=== PATIENT | female | born 1945 | race Caucasian/White ===

== ENCOUNTER → 2018-01-18 | Outpatient (CLI) | payer MEDICARE, BC | LOC: M WHC 10:24 | DX: Z12.31 Encounter for screening mammogram for malignant neoplasm of breast (principal); Z78.0 Asymptomatic menopausal state; Z92.23 Personal history of estrogen therapy | CPT/HCPCS: 77067 ==

== ENCOUNTER → 2019-04-04 | Outpatient (CLI) | payer MEDICARE, BC ==
--- NOTE | 2019-04-04 12:04 | REPMRS ---
Patient History The patient states she had a clinical breast exam in 03/2019. No known family history of cancer. Took estrogen for 23 years. Digital Woman Screen Mammo: April 04, 2019 - Exam #: [id number] Bilateral CC and MLO view(s) were taken. Technologist: Gissel Shirley, Technologist Prior study comparison: January 18, 2018, digital woman screen mammo performed at [facility]. September 02, 2016, digital woman screen mammo performed at [facility]. August 14, 2014, digital woman screen mammo performed at [facility]. FINDINGS: There are scattered fibroglandular densities. There is a needle biopsy marker clip again noted in the right breast. There is a stable nodular density centrally in the left breast unchanged from multiple prior studies. This measures 14 mm in greatest diameter and contains a few punctate calcifications. There is a moderate amount of residual fibroglandular tissue which is fairly symmetric. There is no interval development of dominant mass, architectural distortion, or clustered microcalcification typical of malignancy. There has been no change in the appearance of the mammogram from the prior studies. 3-D tomosynthesis shows no additional findings. Assessment: BI-RADS/ACR category 2 mammogram. Benign Findings. Recommendation Routine screening mammogram of both breasts in 1 year (for women over age 40). This patient's Lifetime Breast Cancer RIsk is estimated at 3.0 %. This mammogram was interpreted with the aid of an FDA-approved computer-aided dectection system. Electronically Signed By: Hiro Sainz MD 04/04/19 [id number]
--- NOTE | 2019-04-04 15:36 | DEXA ---
AP SPINE L1 - L4 0.960 -1.9 -0.2 LT FEMUR TOTAL 0.869 -1.1 0.5 LT NECK 0.770 -1.9 -0.1 RT FEMUR TOTAL 0.854 -1.2 0.4 RT NECK 0.755 -2.0 -0.2 TOTAL BODY TOTAL OTHER COMMENTS: There is low bone density of the spine and hips. The density of the spine has decreased 19.5% since the initial exam on 04/23/2000. The spine density has decreased 0.7% since the most recent exam on 09/02/2016. The density of the left hip has decreased 6.3% since the initial exam on 04/23/2000. The density of the left hip has decreased 3.6% since the most East exam on 09/02/2016. The density of the right hip has decreased 8.5% since the initial exam on 04/23/2000. The density of the right hip has decreased 1.3% since the most recent exam on 09/02/2016. FOLLOW-UP: Recommendation for the next bone density exam: 2 years. JOSH
== END ==
LOC: M WHC 10:01
PROVIDERS: ATTEND Nurse Practitioner Women's Health
DX: Z12.31 Encounter for screening mammogram for malignant neoplasm of breast (principal); N63.20 Unspecified lump in the left breast, unspecified quadrant; Z78.0 Asymptomatic menopausal state; M85.88 Other specified disorders of bone density and structure, other site; Z92.23 Personal history of estrogen therapy
CPT/HCPCS: 77063; 77067; 77080; G0463

== ENCOUNTER → 2020-04-09 | Outpatient (CLI) | payer MEDICARE, BC ==
--- NOTE | 2020-04-09 11:08 | REPMRS ---
Patient History The patient states she had a clinical breast exam in March 2020. No known family history of cancer. Took estrogen for 23 years. Digital Woman Screen Mammo: April 09, 2020 - Exam #: [id number] Bilateral CC and MLO view(s) were taken. Technologist: Tete Sinclair, Technologist Prior study comparison: April 04, 2019, bilateral digital woman screen mammo performed at [facility]. January 18, 2018, digital woman screen mammo performed at [facility]. September 02, 2016, digital woman screen mammo performed at [facility]. FINDINGS: There are scattered fibroglandular densities. The Volpara volumetric breast density category is:B. There is a stable nodular opacity in the superior medial quadrant of the left breast unchanged from multiple prior studies. There has been no change in the appearance of the mammogram from the prior studies. There is a mild amount of scattered fibroglandular density which is fairly symmetric. There is no interval development of dominant mass, architectural distortion, or grouped microcalcification suggestive of malignancy. 3-D tomosynthesis shows no additional findings. Assessment: BI-RADS/ACR category 2 mammogram. Benign Findings. Recommendation Routine screening mammogram of both breasts in 1 year (for women over age 40). This patient's Lifetime Breast Cancer Risk is estimated at 2.8 %. This mammogram was interpreted with the aid of an FDA-approved computer-aided dectection system. Electronically Signed By: Hiro Sainz MD 04/09/20 [id number]
== END ==
LOC: M WHC 09:33
PROVIDERS: ATTEND Nurse Practitioner Women's Health
DX: Z01.419 Encounter for gynecological examination (general) (routine) without abnormal findings (principal); Z12.31 Encounter for screening mammogram for malignant neoplasm of breast; Z92.23 Personal history of estrogen therapy
CPT/HCPCS: 77063; 77067; G0101

== ENCOUNTER → 2021-04-18 | Outpatient (CLI) | payer MEDICARE, BC ==
--- NOTE | 2021-04-18 11:40 | REPMRS ---
Patient History The patient states she had a clinical breast exam in March 2021. No known family history of cancer. Took estrogen for 23 years. No breast complaints today Patient signed the MRS sheet 1st covid vaccine 01/18/21-right arm-Moderna 2nd covid vaccine 02/15/21-left arm Patient states she has gained 15lbs since her last mammo [facility] on PACS Patient Identification Verified Digital Woman Screen Mammo: April 18, 2021 - Exam #: [id number] Bilateral CC and MLO view(s) were taken. Technologist: Tete Sinclair, Technologist Prior study comparison: April 09, 2020, bilateral digital woman screen mammo performed at [facility]. April 04, 2019, bilateral digital woman screen mammo performed at [facility]. January 18, 2018, digital woman screen mammo performed at [facility]. FINDINGS: There are scattered fibroglandular densities. The Volpara volumetric breast density category is: B. There is a stable nodular opacity containing coarse calcifications again noted in the left breast unchanged from multiple prior studies. There is a moderate amount of residual fibroglandular tissue which is fairly symmetric. There is no interval development of dominant mass, architectural distortion, or grouped microcalcification typical of malignancy. There has been no change in the appearance of the mammogram from the prior studies. 3-D tomosynthesis shows no additional findings. Assessment: BI-RADS/ACR category 2 mammogram. Benign Findings. Recommendation Routine screening mammogram of both breasts in 1 year (for women over age 40). This patient's [facility] Lifetime Breast Cancer RIsk is estimated at 2.6 %. This mammogram was interpreted with the aid of an FDA-approved computer-aided dectection system. Electronically Signed By: Hiro Sainz MD 04/18/21 [id number]
== END ==
LOC: M WHC 10:35
PROVIDERS: ATTEND Nurse Practitioner Women's Health
DX: Z01.419 Encounter for gynecological examination (general) (routine) without abnormal findings (principal); Z12.31 Encounter for screening mammogram for malignant neoplasm of breast; Z92.23 Personal history of estrogen therapy
CPT/HCPCS: 77063; 77067; G0101

== ENCOUNTER → 2021-08-19 | Outpatient (CLI) | payer MEDICARE, BC ==
[~2021-08-19] MED LIST: CICL8SOL3; FOSI10TA4 OR; HYDR-3490 OR; SERT50TA29 OR
== END ==
LOC: M LABSMTC 10:26
PROVIDERS: ATTEND Anesthesiology
DX: Z01.812 Encounter for preprocedural laboratory examination (principal); Z20.822 Contact with and (suspected) exposure to COVID-19

== ENCOUNTER 2021-08-23 08:59 | Day surgery (SDC) | payer MEDICARE, BC ==
[~2021-08-23] VITALS: Ht 162.6 cm; Wt 79.4 kg
[~2021-08-23 08:59] MED LIST changes: +LIDOCAINE 2% 100MG/5ML SDV (FOR ANES.) As Ordered ONE; +propofoL 200 MG/20 ML VIAL As Ordered ONE
[2021-08-23] MEDS ORDERED: NS 1,000 ML IV ONE (09:20)
--- NOTE | 2021-08-23 11:49 | ROOR ---
Patient Name: Susan Sheikh Procedure Date: 08/23/2021 11:20 AM Date of : 1945 Age: 76 Room: [facility] Gender: Female Note Status: Finalized Procedure: Colonoscopy Indications: Screening for colorectal malignant neoplasm Providers: Adan Forman MD Referring MD: Graciela Shin NP Requesting Provider: Medicines: Monitored Anesthesia Care Complications: No immediate complications. Procedure: Pre-Anesthesia Assessment: - The heart rate, respiratory rate, oxygen saturations, blood pressure, adequacy of pulmonary ventilation, and response to care were monitored throughout the procedure. The Colonoscope was introduced through the anus and advanced to the terminal ileum, with identification of the appendiceal orifice and IC valve. The colonoscopy was performed without difficulty. The patient tolerated the procedure well. The quality of the bowel preparation was good. Findings: The perianal and digital rectal examinations were normal. Multiple small and large-mouthed diverticula/moderate to severe diverticulosis was found in the sigmoid colon. Small Internal Hemorrhoids. Retroflexion in the right colon was performed. The exam was otherwise without abnormality on direct and retroflexion views. Impression: - Diverticulosis in the sigmoid colon. - Small Internal Hemorrhoids. - The colon was otherwise normal on direct and retroflexion views. - No specimens collected. Recommendation: - Repeat colonoscopy PRN for screening purposes. Procedure Code(s): --- Professional --- 04345, Colonoscopy, flexible; diagnostic, including collection of specimen(s) by brushing or washing, when performed (separate procedure) Diagnosis Code(s): --- Professional --- K57.30, Diverticulosis of large intestine without perforation or abscess without bleeding Z12.11, Encounter for screening for malignant neoplasm of colon CPT copyright 2019 [employer]. All rights reserved. The codes documented in this report are preliminary and upon cartoonist special effects review may be revised to meet current compliance requirements. Adan Forman MD Adan Forman MD 08/23/2021 11:48:55 AM Electronically signed by Adan Forman MD Number of Addenda: 0 Note Initiated On: 08/23/2021 11:20 AM Estimated Blood Loss: Estimated blood loss: none.
[2021-08-23 12:05] VITALS: BP 153/70
== END 2021-08-23 12:16 | disposition home or self-care (01) ==
LOC: M OPP 08:59
PROVIDERS: ATTEND Internal Medicine Gastroenterology
DX: Z12.11 Encounter for screening for malignant neoplasm of colon (principal); K57.30 Diverticulosis of large intestine without perforation or abscess without bleeding; K64.8 Other hemorrhoids; I10 Essential (primary) hypertension; E78.5 Hyperlipidemia, unspecified; Z78.0 Asymptomatic menopausal state; Z88.2 Allergy status to sulfonamides; Z88.8 Allergy status to other drugs, medicaments and biological substances; Z79.899 Other long term (current) drug therapy

== ENCOUNTER → 2022-07-17 | Outpatient (CLI) | payer MEDICARE, BC ==
[~2022-07-17] MED LIST changes: +CICL6.6S; -CICL8SOL3; -FOSI10TA4 OR; +FOSI10TA44 OR; -LIDOCAINE 2% 100MG/5ML SDV (FOR ANES.) As Ordered ONE; -propofoL 200 MG/20 ML VIAL As Ordered ONE
== END ==
LOC: M WHC 09:08
PROVIDERS: ATTEND Nurse Practitioner Family
DX: Z12.31 Encounter for screening mammogram for malignant neoplasm of breast (principal); Z13.820 Encounter for screening for osteoporosis; M85.89 Other specified disorders of bone density and structure, multiple sites; R92.8 Other abnormal and inconclusive findings on diagnostic imaging of breast

== ENCOUNTER → 2022-08-27 | Outpatient (CLI) | payer MEDICARE, BC | LOC: M WHC 09:52 | PROVIDERS: ATTEND Nurse Practitioner Family | DX: Z12.31 Encounter for screening mammogram for malignant neoplasm of breast (principal) | CPT/HCPCS: 76642; 77065; G0279 ==

== ENCOUNTER → 2023-12-07 | Outpatient (CLI) | payer BC, MEDICARE | LOC: M WHC 10:16 | PROVIDERS: ATTEND Nurse Practitioner Family | DX: Z12.31 Encounter for screening mammogram for malignant neoplasm of breast (principal) ==